=== PATIENT | female | born 1960 | race Caucasian/White ===

== ENCOUNTER 2016-07-30 16:18 | Emergency (ER) | payer BC ==
[~2016-07-30] VITALS: Ht 154.9 cm; Wt 72.6 kg
== END 2016-07-30 18:47 | disposition short-term general hospital (02) ==
LOC: ER 16:18
DX: K57.92 Diverticulitis of intestine, part unspecified, without perforation or abscess without bleeding (principal); N39.0 Urinary tract infection, site not specified; Z91.018 Allergy to other foods
CPT/HCPCS: Q9963; Q9967